=== PATIENT | male | born 2005 | race Two or more races ===

== ENCOUNTER 2024-02-15 01:13 | Emergency (ER) | payer SELFPAY ==
[~2024-02-15] VITALS: Ht 182.9 cm; Wt 77.6 kg
[2024-02-15 01:22] VITALS: BP 137/80; PULSE 66; RESP 14; O2SAT 97
== END 2024-02-15 03:54 ==
LOC: ER 01:13
DX: R51.9 Headache, unspecified (principal); R11.0 Nausea; Z53.21 Procedure and treatment not carried out due to patient leaving prior to being seen by health care provider